=== PATIENT | female | born 1935 | race Caucasian/White ===

== ENCOUNTER 2021-05-16 08:38 | Emergency (ER) | payer MEDICARE ==
[2021-05-16] MEDS ORDERED: Sodium Chloride 0.9% 10 ML Syringe FLUSH PRN (08:56)
--- NOTE | 2021-05-16 09:06 | EDM.PDOC ---
ED HPI GENERAL MEDICAL PROBLEM - General Chief Complaint: Lower Extremity Injury/Pain Stated Complaint: [facility] Time Seen by Provider: 05/16/21 08:40 Source of Information: Reports: Patient, EMS History Limitations: Reports: No Limitations - History of Present Illness INITIAL COMMENTS - FREE TEXT/NARRATIVE: The patient presents by [facility] for a fall and left hip pain. She said she has an old walker and she fell twice today trying to use it. She has pain to her left hip. She was given some dilaudid IV by EMS and she feels better except with transferring from cot to ER bed. She did not hit her head or hurt her neck. She is not on any blood thinners. She has no headache, neck pain, chest pain, abdominal pain, fever, chills, cough, dysuria, nausea or vomiting. She has edema to both lower legs. Onset: Sudden Duration: Minutes: Location: Reports: Lower Extremity, Left (hip) Quality: Reports: Sharp Severity: Moderate Improves with: Reports: Immobilization Worsens with: Reports: Movement Context: Reports: Trauma (fell) Associated Symptoms: Reports: No Other Symptoms Left Hip Pain Score (Numeric/FACES): 0 - Related Data Allergies Allergy/AdvReac Type Severity Reaction Status Date / Time latex Allergy Itching Verified 05/16/21 09:32 Penicillins Allergy Itching Verified 05/16/21 08:52 eggs Allergy Cannot Uncoded 05/16/21 09:32 Remember Home Meds: Home Meds Calcium Carbonate/Vitamin D3 [Calcium 600-Vit D3 400 Tablet] 400 - 600 mg PO BID 05/16/21 [History] Carbidopa/Levodopa [Carbidopa-Levo ER 25-100] 25 - 100 mg PO QID 05/16/21 [History] Furosemide [Lasix] 20 mg PO DAILY PRN 05/16/21 [History] Gabapentin [Neurontin] 100 mg PO TID 05/16/21 [History] Hydroxychloroquine [Plaquenil] 200 mg PO BID 05/16/21 [History] Losartan Potassium 25 mg PO DAILY 05/16/21 [History] Meloxicam 7.5 mg PO BID 05/16/21 [History] Meloxicam 7.5 mg PO DAILY 05/16/21 [History] Omeprazole 40 mg PO BEDTIME 05/16/21 [History] Propranolol HCl [Propranolol] 60 mg PO ACLUNCH 05/16/21 [History] Selegiline HCl 5 mg PO DAILY 05/16/21 [History] allopurinoL [Zyloprim] 100 mg PO DAILY 05/16/21 [History] Review of Systems - Review of Systems Review Of Systems: See Below Constitutional: Reports: No Symptoms Eyes: Reports: No Symptoms Ears: Reports: No Symptoms Nose: Reports: No Symptoms Mouth/Throat: Reports: No Symptoms Respiratory: Reports: No Symptoms Cardiovascular: Reports: No Symptoms GI/Abdominal: Reports: No Symptoms Genitourinary: Reports: No Symptoms Musculoskeletal: Reports: Other (Left hip pain) ED EXAM, GENERAL - Physical Exam Exam: See Below Exam Limited By: No Limitations General Appearance: Alert, No Apparent Distress Ears: Normal External Exam Nose: Normal Inspection Head: Atraumatic, Normocephalic Neck: Normal Inspection, Supple, Non-Tender Respiratory/Chest: No Respiratory Distress, Lungs Clear, Normal Breath Sounds Cardiovascular: Regular Rate, Rhythm, No Murmur, Other (2+ edema to both lower legs) GI/Abdominal: Soft, Non-Tender, No Organomegaly Extremities: Other (Pain upon palpation to the left hip. 2+ edema to both lower legs. Good sensation and decreased pulses bilateraly.) Course - Vital Signs Last Recorded V/S: Last Vital Signs Temp 96.7 F L 05/16/21 08:38 Pulse 90 05/16/21 08:38 Resp 20 05/16/21 08:38 BP 162/72 H 05/16/21 08:38 Pulse Ox 96 05/16/21 08:38 - Orders/Labs/Meds Orders: Active Orders 24 hr Category Date Time Status Cardiac Monitoring [RC] . DIRECTED Care 05/16/21 08:56 Active Peripheral IV Care [RC] . DIRECTED Care 05/16/21 08:57 Active UA W/MICROSCOPIC [URIN] Stat Lab 05/16/21 10:45 Results Sodium Chloride 0.9% [Saline Flush] Med 05/16/21 08:56 Active 10 ml FLUSH ASDIRECTED PRN Peripheral IV Insertion Adult [OM.PC] Stat Oth 05/16/21 08:56 Ordered Medication Orders Sodium Chloride (Sodium Chloride 0.9% 10 Ml Syringe) 10 ml FLUSH ASDIRECTED PRN PRN Reason: Keep Vein Open Last Admin: 05/16/21 09:00 Dose: 10 ml Documented by: VINEETQUANG Labs: Laboratory Tests 05/16/21 05/16/21 05/16/21 Range/Units 09:55 10:00 10:00 WBC 10.70 H (3.98-10.04) K/mm3 RBC 4.63 (3.98-5.22) M/mm3 Hgb 13.6 (11.2-15.7) gm/dl Hct 43.7 (34.1-44.9) % MCV 94.4 (79.4-94.8) fl MCH 29.4 (25.6-32.2) pg MCHC 31.1 L (32.2-35.5) g/dl RDW Std Deviation 45.0 (36.4-46.3) fL Plt Count 203 (182-369) K/mm3 MPV 10.2 (9.4-12.3) fl Neut % (Auto) 78.3 H (34.0-71.1) % Lymph % (Auto) 10.0 L (19.3-51.7) % [place] % (Auto) 10.5 (4.7-12.5) % Eos % (Auto) 0.6 L (0.7-5.8) Baso % (Auto) 0.2 (0.1-1.2) % Neut # (Auto) 8.39 H (1.56-6.13) K/mm3 Lymph # (Auto) 1.07 L (1.18-3.74) K/mm3 [place] # (Auto) 1.12 H (0.24-0.36) K/mm3 Eos # (Auto) 0.06 (0.04-0.36) K/mm3 Baso # (Auto) 0.02 (0.01-0.08) K/mm3 Sodium 141 (136-145) mEq/L Potassium 3.9 (3.5-5.1) mEq/L Chloride 105 (98-107) mEq/L Carbon Dioxide 27 (21-32) mEq/L Anion Gap 12.9 (5-15) BUN 29 H (7-18) mg/dL Creatinine 0.7 (0.55-1.02) mg/dL Est Cr Clr Drug Dosing 49.82 mL/min Estimated GFR (MDRD) > 60 (>60) mL/min BUN/Creatinine Ratio 41.4 H (14-18) Glucose 118 H (70-99) mg/dL Calcium 8.4 L (8.5-10.1) mg/dL Total Bilirubin 0.6 (0.2-1.0) mg/dL AST 21 (15-37) U/L ALT 7 L (14-59) U/L Alkaline Phosphatase 85 (46-116) U/L Troponin I < 0.017 (0.00-0.056) ng/mL NT-Pro-B Natriuret Pep (0-450) pg/mL Total Protein 6.4 (6.4-8.2) g/dl Albumin 3.5 (3.4-5.0) g/dl Globulin 2.9 gm/dL Albumin/Globulin Ratio 1.2 (1-2) Urine Color (Yellow) Urine Appearance (Clear) Urine pH (5.0-8.0) Ur Specific [place] (1.005-1.030) Urine Protein (Negative) Urine Glucose (UA) (Negative) Urine Ketones (Negative) Urine Occult Blood (Negative) Urine Nitrite (Negative) Urine Bilirubin (Negative) Urine Urobilinogen (0.2-1.0) Ur Leukocyte Esterase (Negative) SARS-CoV-2 RNA (JACKI) Negative (NEGATIVE) 05/16/21 05/16/21 Range/Units 10:00 10:45 WBC (3.98-10.04) K/mm3 RBC (3.98-5.22) M/mm3 Hgb (11.2-15.7) gm/dl Hct (34.1-44.9) % MCV (79.4-94.8) fl MCH (25.6-32.2) pg MCHC (32.2-35.5) g/dl RDW Std Deviation (36.4-46.3) fL Plt Count (182-369) K/mm3 MPV (9.4-12.3) fl Neut % (Auto) (34.0-71.1) % Lymph % (Auto) (19.3-51.7) % [place] % (Auto) (4.7-12.5) % Eos % (Auto) (0.7-5.8) Baso % (Auto) (0.1-1.2) % Neut # (Auto) (1.56-6.13) K/mm3 Lymph # (Auto) (1.18-3.74) K/mm3 [place] # (Auto) (0.24-0.36) K/mm3 Eos # (Auto) (0.04-0.36) K/mm3 Baso # (Auto) (0.01-0.08) K/mm3 Sodium (136-145) mEq/L Potassium (3.5-5.1) mEq/L Chloride (98-107) mEq/L Carbon Dioxide (21-32) mEq/L Anion Gap (5-15) BUN (7-18) mg/dL Creatinine (0.55-1.02) mg/dL Est Cr Clr Drug Dosing mL/min Estimated GFR (MDRD) (>60) mL/min BUN/Creatinine Ratio (14-18) Glucose (70-99) mg/dL Calcium (8.5-10.1) mg/dL Total Bilirubin (0.2-1.0) mg/dL AST (15-37) U/L ALT (14-59) U/L Alkaline Phosphatase (46-116) U/L Troponin I (0.00-0.056) ng/mL NT-Pro-B Natriuret Pep 245 (0-450) pg/mL Total Protein (6.4-8.2) g/dl Albumin (3.4-5.0) g/dl Globulin gm/dL Albumin/Globulin Ratio (1-2) Urine Color Yellow (Yellow) Urine Appearance Clear (Clear) Urine pH 5.5 (5.0-8.0) Ur Specific [place] > or = 1.030 (1.005-1.030) Urine Protein Trace H (Negative) Urine Glucose (UA) Negative (Negative) Urine Ketones 2+ H (Negative) Urine Occult Blood Negative (Negative) Urine Nitrite Negative (Negative) Urine Bilirubin Negative (Negative) Urine Urobilinogen 0.2 (0.2-1.0) Ur Leukocyte Esterase Trace H (Negative) SARS-CoV-2 RNA (JACKI) (NEGATIVE) Meds: Medications Generic Name Dose Route Start Last Admin Trade Name Freq PRN Reason Stop Dose Admin Sodium Chloride 10 ml 05/16/21 08:56 05/16/21 09:00 Sodium Chloride 0.9% 10 Ml Syringe FLUSH 10 ml ASDIRECTED PRN Administration Keep Vein Open Discontinued Medications Generic Name Dose Route Start Last Admin Trade Name Freq PRN Reason Stop Dose Admin Hydromorphone HCl 0.25 mg 05/16/21 11:05 Hydromorphone 0.5 Mg/0.5 Ml Syringe IVPUSH 05/16/21 11:06 ONETIME ONE - Re-Assessments/Exams Free Text/Narrative Re-Assessment/Exam: 05/16/21 09:10 I ordered an IV saline lock, EKG, CXR, UA, labs and an x-ray of her left hip. 05/16/21 09:40 Her CXR looks good. Her hips x-ray shows a femoral neck fracture. 05/16/21 11:12 Her WBC is elevated at 10.7. Her CMP looks good. Her troponin is negative. Her BNP is normal. Her UA shows no UTI. I talked with my charge nurse here and we have no beds. I call [facility] and they had no beds. I called [facility] in [place] and talked with the orthopedic surgeon Dr Farr and the hospitalist Dr Segundo and they accepted the patient. I called and talked to the patient's daughter Alexia to update her. Departure - Departure Time of Disposition: 11:25 Disposition: DC/Tfer to Acute Hospital 02 Condition: Poor Clinical Impression: Fall Qualifiers: Encounter type: initial encounter Qualified Code(s): W19.XXXA - Unspecified fall, initial encounter Closed left hip fracture Qualifiers: Encounter type: initial encounter Qualified Code(s): S72.002A - Fracture of unspecified part of neck of left femur, initial encounter for closed fracture - Discharge Information Referrals: Janett Holland MERCHANDISING REPRESENTATIVE [Primary Care Provider] - Forms: ED Department Discharge Sepsis Event Note (ED) - Evaluation Sepsis Screening Result: No Definite Risk - Focused Exam Vital Signs: Vital Signs Temp Pulse Resp BP Pulse Ox 05/16/21 08:38 96.7 F L 90 20 162/72 H 96 - My Orders Last 24 Hours: My Active Orders 05/16/21 08:56 Cardiac Monitoring [RC] . DIRECTED Sodium Chloride 0.9% [Saline Flush] 10 ml FLUSH ASDIRECTED PRN Peripheral IV Insertion Adult [OM.PC] Stat 05/16/21 08:57 Peripheral IV Care [RC] . DIRECTED 05/16/21 10:45 UA W/MICROSCOPIC [URIN] Stat - Assessment/Plan Last 24 Hours: My Active Orders 05/16/21 08:56 Cardiac Monitoring [RC] . DIRECTED Sodium Chloride 0.9% [Saline Flush] 10 ml FLUSH ASDIRECTED PRN Peripheral IV Insertion Adult [OM.PC] Stat 05/16/21 08:57 Peripheral IV Care [RC] . DIRECTED 05/16/21 10:45 UA W/MICROSCOPIC [URIN] Stat
--- NOTE | 2021-05-16 10:24 | CR ---
Chest: AP view of the chest was obtained. Comparison: No prior chest imaging is available. Fairly large hiatal hernia is noted. Heart size is normal. Slight tortuosity of the thoracic aorta is seen. Lungs are clear with no acute parenchymal change. Bony structures show scoliosis within the spine. Mild degenerative change is seen within both shoulders. Osteopenia is also noted. Impression: 1. Findings as described above. 2. Nothing acute is seen on AP chest x-ray. Diagnostic code #2
--- NOTE | 2021-05-16 10:25 | CR ---
Pelvis and left hip: AP view of the pelvis was obtained as well as AP view of the left hip and crosstable lateral views of the left hip. Subcapital fracture is seen which shows evidence of displacement. Bony structures are osteopenic. Degenerative change is seen within the spine with mild scoliosis. Diffuse osteopenia is present. Mild vascular calcification is seen. Impression: 1. Displaced subcapital fracture within the left hip. 2. Other chronic findings as noted above. Diagnostic code #3
[2021-05-16] MEDS ORDERED: HYDROmorphone 0.5 MG/0.5 ML Syringe IVPUSH ONE ×3 (11:05→12:18)
== END 2021-05-16 13:45 ==
LOC: JD.ED 08:38 → SUPCPDRO 08:38 → JD.ED 13:45
DX: S72.012A Unspecified intracapsular fracture of left femur, initial encounter for closed fracture (principal); Z91.040 Latex allergy status; Z88.0 Allergy status to penicillin; Z91.012 Allergy to eggs; Z20.822 Contact with and (suspected) exposure to COVID-19; W19.XXXA Unspecified fall, initial encounter
CPT/HCPCS: 36415; 51702; 71045; 73502; 80053; 81001; 83880; 84484; 85025; 93005; 96374; 96376; 99285; J1170; U0002; 93010